=== PATIENT | female | born 1985 | race Caucasian/White ===

== ENCOUNTER 2018-07-31 11:24 | Emergency (ER) | payer MEDICAID ==
--- NOTE | 2018-07-31 11:40 | NUR ---
pt eloped from the facility
== END 2018-07-31 11:40 | disposition left against medical advice (07) ==
LOC: EDBD 11:24 → ER 11:24
DX: Z53.21 Procedure and treatment not carried out due to patient leaving prior to being seen by health care provider (principal)

== ENCOUNTER 2018-11-21 16:40 | Emergency (ER) | payer MEDICAID, OTHER ==
[~2018-11-21] VITALS: Ht 167.6 cm; Wt 61.7 kg
[2018-11-21 16:48] VITALS: BP 99/66
== END 2018-11-21 17:47 | disposition home or self-care (01) ==
LOC: ER 16:40
DX: O99.512 Diseases of the respiratory system complicating pregnancy, second trimester (principal); J06.9 Acute upper respiratory infection, unspecified; Z3A.22 22 weeks gestation of pregnancy

== ENCOUNTER 2018-11-22 23:31 | Emergency (ER) | payer MEDICAID, OTHER ==
[~2018-11-22] VITALS: Ht 167.6 cm; Wt 63.5 kg
[2018-11-23 00:10] VITALS: BP 100/65
== END 2018-11-23 00:57 | disposition home or self-care (01) ==
LOC: ER 23:33
DX: O99.512 Diseases of the respiratory system complicating pregnancy, second trimester (principal); J06.9 Acute upper respiratory infection, unspecified; Z3A.22 22 weeks gestation of pregnancy